=== PATIENT | female | born 2000 | race Caucasian/White ===

== ENCOUNTER 2019-01-19 06:43 | Emergency (ER) | payer OTHER ==
[2019-01-19] MEDS ORDERED: METOCLOPRAMIDE HCL 10 MG TABLET PO ONE (07:02)
--- NOTE | 2019-01-19 07:05 | ER Document Report ---
ED General - General Chief Complaint: Abdominal Cramping Stated Complaint: ABDOMINAL CRAMPING Time Seen by Provider: 01/19/19 06:55 Primary Care Provider: [facility] [Provider Group] - Follow up in 3-5 days Notes: Patient is a 18-year-old female, , that is approximately 7 weeks gravid that presents to the emergency department for chief complaint of abdominal cramping, nausea, vomiting and diarrhea. Patient reports that since Tuesday she has had at least one episode of vomiting each day, had a small amount of diarrhea as well. She is been having some lower abdominal cramping associated with this. She has not taken anything at home to help with her symptoms. She denies any fevers, chills, night sweats, chest pain, shortness of breath or difficulty breathing, dysuria, hematuria, frequency, vaginal bleeding or discharge. Past Medical History: Denies medical conditions Past Surgical History: Denies surgical history Social History: Denies tobacco, alcohol or drug use. Family History: Reviewed and noncontributory for presenting illness Allergies: Reviewed, see documented allergy list. REVIEW OF SYSTEMS: Other than noted above, the 12 point review of systems was reviewed with the pat ient and were negative, all pertinent findings are included in the HPI. PHYSICAL EXAMINATION: Vital signs reviewed, nursing noted reviewed. GENERAL: Well-appearing, well-nourished and in no acute distress. HEAD: Atraumatic, normocephalic. EYES: Eyes appear normal, extraocular movements intact, sclera anicteric, conjunctiva are normal. ENT: nares patent, oropharynx clear without exudates. Moist mucous membranes. NECK: Normal range of motion, supple without lymphadenopathy LUNGS: Breath sounds clear to auscultation bilaterally and equal. No wheezes rales or rhonchi. HEART: Regular rate and rhythm without murmurs ABDOMEN: Soft, nontender, normoactive bowel sounds. No rebound, guarding, or rigidity. No masses appreciated. EXTREMITIES: Nontender, good range of motion, no pitting or edema. NEUROLOGICAL: No focal neurological deficits. Moves all extremities spontaneously Motor and sensory grossly intact on exam. PSYCH: Normal mood, normal affect. SKIN: Warm, Dry, normal turgor, no rashes or lesions noted on exposed skin TRAVEL OUTSIDE OF THE [place] IN LAST 30 DAYS: No - Related Data Allergies/Adverse Reactions: No Known Allergies Allergy (Unverified 01/19/19 06:45) Past Medical History - Social History Smoking Status: Never Smoker Family History: Reviewed & Not Pertinent Physical Exam - Vital signs Vitals: Temp Pulse Resp BP Pulse Ox 98.0 F 80 16 127/60 H 99 01/19/19 06:49 01/19/19 06:49 01/19/19 06:49 01/19/19 06:49 01/19/19 06:49 Course - Re-evaluation Re-evalutation: Patient seen and examined vital signs reviewed. Laboratory data ordered as appropriate for the patient's presenting symptoms and complaint, with consideration of any critical or life threatening conditions that may be associated with their obtained history and exam as noted above. Patient was treated with p.o. Reglan Results were reviewed when available and demonstrated moderate leukocyte esterase, and white cells, will send for culture, and treat her UTI with Keflex for 5 days The patient was re-evaluated and was stable, no active vomiting Evaluation was most consistent with nausea and vomiting, abdominal cramping and , recommend [id number] Unisom and vitamin B6, and given a short prescription for Reglan as needed, patient made aware of possible side effects including extrapyramidal symptoms. Results were discussed with the patient at this point, after careful consideration I feel that that patient can be discharged from the emergency department, the patient was educated treatments and reasons to return to the emergency department based on their presumed diagnosis as noted above, they were advised to followup with a primary care physician in 2-3 days. Patient was agreeable to plan of care. *Note is created using voice recognition software and may contain spelling, syntax or grammatical errors. Laboratory 01/19/19 07:35 Urine Color YELLOW Urine Appearance CLOUDY Urine pH 5.0 Ur Specific [place] 1.031 Urine Protein 30 H Urine Glucose (UA) NEGATIVE Urine Ketones NEGATIVE Urine Blood NEGATIVE Urine Nitrite NEGATIVE Urine Bilirubin NEGATIVE Urine Urobilinogen 2.0 H Ur Leukocyte Esterase MODERATE H Urine WBC (Auto) 23 Urine RBC (Auto) 5 Squamous Epi Cells Auto 32 Urine Mucus (Auto) MANY Urine Ascorbic Acid NEGATIVE - Vital Signs Vital signs: Temp Pulse Resp BP Pulse Ox 98.0 F 80 16 127/60 H 99 01/19/19 06:49 01/19/19 06:49 01/19/19 06:49 01/19/19 06:49 01/19/19 06:49 - Laboratory Laboratory results interpreted by me: 01/19/19 07:35 Urine Protein 30 H Urine Urobilinogen 2.0 H Ur Leukocyte Esterase MODERATE H Discharge - Discharge Clinical Impression: Vomiting affecting UTI (urinary tract infection) Qualifiers: Urinary tract infection type: site unspecified Hematuria presence: without hematuria Qualified Code(s): N39.0 - Urinary tract infection, site not specified Condition: Stable Disposition: HOME, SELF-CARE Instructions: Urinary Tract Infection ([facility]), Vomiting ([facility]) Additional Instructions: Your urine did not look concerning for a urinary tract infection, please take antibiotics, as prescribed for 5 days, and for the nausea and vomiting at home, he can take the prescribed Reglan, but I would encourage you to start taking Unisom, plus a vitamin B6 tablets, twice daily to help with nausea and vomiting, the Unisom can cause drowsiness, so do not drive or operate the vehicle, if you are taking this medication. Prescriptions: Cephalexin Monohydrate [Keflex 500 mg Capsule] 500 mg PO BID 5 Days #10 capsule Metoclopramide HCl [Reglan 10 mg Tablet] 10 mg PO Q8H PRN #10 tablet PRN Reason: nausea and vomiting Referrals: [facility] [Provider Group] - Follow up in 3-5 days
[2019-01-19 07:56] LABS: APPEARANCE,URINE CLOUDY; BILIRUBIN,URINE NEGATIVE (NEGATIVE); GLUCOSE, URINE NEGATIVE (NEGATIVE); KETONES,URINE NEGATIVE (NEGATIVE); LEUKOCYTE ESTERASE,URINE MODERATE (NEGATIVE); NITRITE,URINE NEGATIVE (NEGATIVE); PROTEIN,URINE 30 mg/dL (NEGATIVE); URINE SPECIFIC GRAVITY 1.031
[2019-01-19 07:57] LABS: COLOR,URINE YELLOW
[2019-01-19 08:30] VITALS: BP 122/65
--- NOTE | 2019-01-23 17:21 | ER Document Report ---
Doctor's Note Notes: 01/23/19 17:20 Culture grew back Gardnerella vaginalis. Patient is 7 weeks first trimester. Recommendations state that it is appropriate to treat BV with Flagyl and as per CDC recommendations. I have written the patient a prescription for Flagyl 500 mg 2 times per day for 7 days.
== END 2019-01-19 08:29 | disposition home or self-care (01) ==
LOC: ER 06:43
DX: O21.9 Vomiting of pregnancy, unspecified (principal); O23.41 Unspecified infection of urinary tract in pregnancy, first trimester; O26.891 Other specified pregnancy related conditions, first trimester; R10.9 Unspecified abdominal pain; R19.7 Diarrhea, unspecified; Z3A.01 Less than 8 weeks gestation of pregnancy
CPT/HCPCS: 81001; 87086; 87088; 99284

== ENCOUNTER 2019-02-17 22:30 | Emergency (ER) | payer OTHER ==
[2019-02-17 23:36] LABS: ABSOLUTE EOSINOPHILS # (AUTO) 0.1 10^3/uL (0.0-0.6); ABSOLUTE LYMPHOCYTES (AUTO) 1.3 10^3/uL (0.5-4.7); ABSOLUTE NEUT (AUTO) 6.1 10^3/uL (1.7-8.2); BASOPHILS % (AUTO) 0.4 % (0-2); EOSINOPHILS % (AUTO) 1.4 % (0-6); HEMATOCRIT 32.8 % (36.0-47.0); HEMOGLOBIN 11.4 g/dL (12.0-15.5); LYMPHOCYTES % (AUTO) 15.2 % (13-45); MEAN CORPUSCULAR HEMOGLOBIN 28.3 pg (27.0-33.4); MEAN CORPUSCULAR HGB CONC 34.8 g/dL (32.0-36.0); MEAN CORPUSCULAR VOLUME 81 fl (80-97); MONOCYTES % (AUTO) 11.6 % (3-13); PLATELET COUNT 223 10^3/uL (150-450); RED BLOOD COUNT 4.04 10^6/uL (3.72-5.28); RED CELL DISTRIBUTION WIDTH 17.1 % (11.5-14.0); SEGMENTED NEUTROPHILS % (AUTO) 71.4 % (42-78); TOTAL CELLS COUNTED % (AUTO) 100 %; WHITE BLOOD COUNT 8.6 10^3/uL (4.0-10.5)
[2019-02-17 23:56] LABS: ALANINE AMINOTRANSFERASE 61 U/L (5-35); ALBUMIN 4.2 g/dL (3.7-5.6); ALKALINE PHOSPHATASE 65 U/L (50-135); ANION GAP 10 (5-19); ASPARTATE AMINO TRANSFERASE 53 U/L (5-30); BILIRUBIN,DIRECT 0.3 mg/dL (0.0-0.4); BILIRUBIN,TOTAL 0.3 mg/dL (0.2-1.3); BLOOD UREA NITROGEN 3 mg/dL (7-20); CALCIUM 9.2 mg/dL (8.4-10.2); CARBON DIOXIDE 23 mmol/L (22-30); CHLORIDE 105 mmol/L (98-107); GLUCOSE 88 mg/dL (75-110); POTASSIUM 4.5 mmol/L (3.6-5.0); SODIUM 138.2 mmol/L (137-145); TOTAL PROTEIN 7.7 g/dL (6.3-8.2)
[2019-02-18 02:25] LABS: APPEARANCE,URINE SLIGHTLY-CLOUDY; BILIRUBIN,URINE NEGATIVE (NEGATIVE); GLUCOSE, URINE NEGATIVE (NEGATIVE); KETONES,URINE 20 mg/dL (NEGATIVE); LEUKOCYTE ESTERASE,URINE NEGATIVE (NEGATIVE); NITRITE,URINE NEGATIVE (NEGATIVE); PROTEIN,URINE 30 mg/dL (NEGATIVE); URINE SPECIFIC GRAVITY 1.028
[2019-02-18 02:31] LABS: COLOR,URINE YELLOW
[2019-02-18] MEDS ORDERED: NORMAL SALINE 1000 ML 1,000 ML IV ONE (03:05)
[2019-02-18] MEDS ORDERED: METOCLOPRAMIDE HCL INJ/PF 10 MG/2 ML SDV IV ONE (03:05)
--- NOTE | 2019-02-18 04:23 | ER Document Report ---
ED General - General Chief Complaint: Nausea/Vomiting Stated Complaint: VOMITING Time Seen by Provider: 02/18/19 03:02 Notes: Patient is a 18-year-old female at 10 weeks gestation who presents with approximate 1 week of nausea and vomiting. She states that she became concerned tonight because there was a few small flecks of blood in the vomitus. Notes that eating or drinking seems to worsen her nausea and vomiting. Has been taking metoclopramide without relief. Has had some nausea and vomiting throughout her . Has not seen her OB regarding today's concerns. I think is necessarily otherwise new or different regarding her symptoms tonight. She denies any focal abdominal pain. Symptoms are described as moderate to severe. Gradual in onset and have been constant since that time. Denies any chronic medical problems or history of abdominal surgeries. TRAVEL OUTSIDE OF THE [place] IN LAST 30 DAYS: No - Related Data Allergies/Adverse Reactions: No Known Allergies Allergy (Verified 02/17/19 22:41) Past Medical History - General Information source: Patient - Social History Smoking Status: Never Smoker Frequency of alcohol use: None Drug Abuse: None Lives with: Spouse/Significant other Family History: Reviewed & Not Pertinent Renal/ Medical History: Denies: Hx Peritoneal Dialysis Review of Systems - Review of Systems Notes: Constitutional: Negative for fever. HENT: Negative for sore throat. Eyes: Negative for visual changes. Cardiovascular: Negative for chest pain. Respiratory: Negative for shortness of breath. Gastrointestinal: Negative for abdominal pain, positive nausea vomiting Genitourinary: Negative for dysuria. Musculoskeletal: Negative for back pain. Skin: Negative for rash. Neurological: Negative for headaches, weakness or numbness. 10 point ROS negative except as marked above and in HPI. Physical Exam - Vital signs Vitals: Temp Pulse Resp BP Pulse Ox 98 F 79 18 116/68 99 02/17/19 22:42 02/17/19 22:42 02/17/19 22:42 02/17/19 22:42 02/17/19 22:42 Interpretation: Normal Notes: PHYSICAL EXAMINATION: GENERAL: Well-appearing, well-nourished and in no acute distress. HEAD: Atraumatic, normocephalic. EYES: Pupils equal round and reactive to light, extraocular movements intact, sclera anicteric, conjunctiva are normal. ENT: nares patent, oropharynx clear without exudates. Mild dry mucous membranes. NECK: Normal range of motion, supple without lymphadenopathy LUNGS: Breath sounds clear to auscultation bilaterally and equal. No wheezes rales or rhonchi. HEART: Regular rate and rhythm without murmurs ABDOMEN: Soft, gravid uterus, nontender, normoactive bowel sounds. No guarding, no rebound. No masses appreciated. EXTREMITIES: Normal range of motion, no pitting or edema. No cyanosis. NEUROLOGICAL: No focal neurological deficits. Moves all extremities spontaneously and on command. PSYCH: Normal mood, normal affect. SKIN: Warm, Dry, normal turgor, no rashes or lesions noted. Course - Re-evaluation Re-evalutation: 02/18/19 04:21 Patient presents with persistent vomiting during . Vitals at time of arrival unremarkable without tachycardia or hypotension. Laboratories reveal a normal creatinine and no evidence of significant dehydration. Patient was able to tolerate oral intake here in the emergency department. IV fluids were provided. Bedside ultrasound shows appropriate heart rate for gestational age with active movement. No vaginal bleeding or discharge. Based on abdominal exam, vitals and history I do not suspect an acute appendicitis, terrell stasis of , acute cholecystitis, pancreatitis, or bowel obstruction. Patient will be started on a combination of doxylamine and vitamin B6. At this time will discharge with return precautions and follow-up recommendations. Verbal discharge instructions given a the bedside and opportunity for questions given. Medication warnings reviewed. Patient is in agreement with this plan and has verbalized understanding of return precautions and the need for primary care follow-up in the next 24-72 hours. - Vital Signs Vital signs: Temp Pulse Resp BP Pulse Ox 98 F 79 18 116/68 99 02/17/19 22:42 02/17/19 22:42 02/17/19 22:42 02/17/19 22:42 02/17/19 22:42 - Laboratory Result Diagrams: 02/17/19 23:20 02/17/19 23:20 Laboratory results interpreted by me: 02/17/19 02/17/19 02/18/19 23:20 23:20 01:55 Hgb 11.4 L Hct 32.8 L RDW 17.1 H BUN 3 L Creatinine 0.43 L AST 53 H ALT 61 H Urine Protein 30 H Urine Ketones 20 H Urine Urobilinogen 4.0 H Urine Ascorbic Acid 40 H Discharge - Discharge Clinical Impression: Nausea and vomiting during Condition: Good Disposition: HOME, SELF-CARE Additional Instructions: You have been seen for vomiting during . You should continue to drink plenty of water and consider taking a solution such as Pedialyte if your having difficulty eating food. Please return if you become unable to drink any fluids for more than 12 hours, urinate less than twice a day, pass out, or have any other symptoms that are concerning to you. For nausea and vomiting during I recommend: Start with 10-12.5 mg of pyridoxine (vitamin B6) three times a day for 2 days. If not fully effective, Increase to 12.5 mg of pyridoxine four times a day for 2 days. If not fully effective, Increase to 25 mg of pyridoxine three times a day for 2 days. If not fully effective, Continue 25 mg pyridoxine 3 times a day, and add 12.5 mg of doxylamine before bedtime each day for 2 days. If not fully effective, Continue 25 mg pyridoxine 3 times a day, and take 12.5 mg of doxylamine twice a day. If not fully effective, Continue 25 mg pyridoxine 3 times a day, and take 12.5 mg of doxylamine three times a day.
[2019-02-18 05:02] VITALS: BP 100/48
== END 2019-02-18 05:10 | disposition home or self-care (01) ==
LOC: ER 22:30
DX: O21.9 Vomiting of pregnancy, unspecified (principal); Z3A.10 10 weeks gestation of pregnancy
CPT/HCPCS: 99284; 96374; 36415; 85025; 80053; 81001; J2765; J7030; 96361

== ENCOUNTER 2019-06-08 08:15 | Emergency (ER) | payer OTHER ==
[2019-06-08 08:26] VITALS: BP 149/90
[2019-06-08] MEDS ORDERED: ACETAMINOPHEN 325 MG TABLET PO ONE (09:40)
--- NOTE | 2019-06-08 09:44 | ER Document Report ---
HPI - HPI Time Seen by Provider: 06/08/19 09:31 Pain Level: 2 Notes: Patient is a 18-year-old female who is approximately 24 weeks who presents complaining of a mild lingering headache for the past 3 to 4 days. She has not been taking any medicines at home for her headache. Patient states her headache is to her temples bilaterally and does not radiate. She is able to eat and drink without difficulties. She is urinating normally and having normal bowel movements. She has not noticed any vaginal odor, discharge, or bleeding. Patient states that she did change the cat litter once on Tuesday and was told that she probably should not be doing that. Patient is not sure if that has anything to do with her headache. She is otherwise been feeling well. Denies any headache, fever, head injury, neck pain, changes in vision/speech/mentation/hearing, URI, sore throat, chest pain, palpitations, syncope, cough, shortness of breath, wheeze, dyspnea, abdominal pain, nausea/vomiting/diarrhea, urinary retention, dysuria, hematuria, loss of control of bowel or bladder, numbness/tingling, muscle paralysis/weakness, or rash. - ROS Systems Reviewed and Negative: Yes All other systems reviewed and negative - REPRODUCTIVE Reproductive: REPORTS: : - DERM Skin Color: Normal Past Medical History - Social History Smoking Status: Never Smoker Frequency of alcohol use: None Drug Abuse: None Family History: Reviewed & Not Pertinent Patient has suicidal ideation: No Patient has homicidal ideation: No Renal/ Medical History: Denies: Hx Peritoneal Dialysis Vertical Provider Document - CONSTITUTIONAL Agree With Documented VS: Yes Notes: PHYSICAL EXAMINATION: GENERAL: Well-appearing, well-nourished and in no acute distress. A&Ox4. Answers questions appropriately. HEAD: Atraumatic, normocephalic. Non-tender. EYES: Pupils equal round and reactive to light, extraocular movements intact, sclera anicteric, conjunctiva are normal. No nystagmus. ENT: Nares patent and without discharge. oropharynx clear without exudates. No tonsilar hypertrophy or erythema. Moist mucous membranes. No sinus tenderness. NECK: Normal range of motion, supple without lymphadenopathy. No rigidity/meningismus. No midline tenderness. LUNGS: Breath sounds clear to auscultation bilaterally and equal. No wheezes rales or rhonchi. HEART: Regular rate and rhythm without murmurs, rubs, gallops. ABDOMEN: Soft, nontender, nondistended abdomen. No guarding, no rebound. Normal bowel sounds present. No CVA tenderness bilaterally. Musculoskeletal: Ext b/l: FROM to passive/active. Strength 5+/5. No deficits noted. No bony tenderness of extremities. Extremities: No cyanosis, clubbing, or edema b/l. Peripheral pulses 2+. Capillary refill less than 2 seconds. NEUROLOGICAL: NIH 0. GCS 15. Cranial nerves grossly intact. Normal speech, normal gait. Normal sensory, motor exams. Reflexes 2+ b/l. CRHISTEN's negative. Pronator drift negative. PSYCH: Normal mood, normal affect. SKIN: Warm, Dry, normal turgor, no rashes or lesions noted. - INFECTION CONTROL TRAVEL OUTSIDE OF THE [place] IN LAST 30 DAYS: No Course - Re-evaluation Re-evalutation: 06/08/19 09:41 Patient is an afebrile, well-hydrated, 18-year-old female who presents to the ED with a headache, suspect mild tension PHAM. Vitals are acceptable without any significant tachycardia, tachypnea, or hypoxia. PE is otherwise unremarkable for any focal neurological deficits. NIH 0, GCS 15, cranial nerves grossly intact. No labs or imaging warranted at this time based on H&P. Patient was given Tylenol. She is nontoxic-appearing and is tolerating p.o. without any difficulties. Low suspicion for any acute glaucoma, temporal arteritis, meningi tis, intracranial hemorrhage, ischemic stroke, or fracture at this time. Patient is aware that this condition can change from initial presentation and that she needs to monitor symptoms closely for any acute changes. Patient to call and speak with her IMMIGRATION CASE MANAGER about and toxoplasmosis. Patient in agreement to hold off on any testing right now based on her current H&P. Return to the ED with any worsening/concerning symptoms otherwise as reviewed in discharge. Patient is in agreement. - Vital Signs Vital signs: Temp Pulse Resp BP Pulse Ox 97.5 F 73 18 149/90 H 98 06/08/19 08:20 06/08/19 08:20 06/08/19 08:20 06/08/19 08:20 06/08/19 08:20 Discharge - Discharge Clinical Impression: Headache Qualifiers: Headache type: tension-type Headache chronicity pattern: acute headache Intractability: not intractable Qualified Code(s): G44.209 - Tension-type headache, unspecified, not intractable Condition: Stable Disposition: HOME, SELF-CARE Instructions: Headache ([facility]) Additional Instructions: Rest, Ice/cool compress Tylenol as needed Light stretches daily Strength exercises as able Moist heat and massage may help F/u with your PCP in 2-3 days for a recheck Call and speak with IMMIGRATION CASE MANAGER regarding toxoplasmosis and Return to the ED with any worsening symptoms and/or development of fever, headache, changes in behavior/mentation/vision/speech, chest pain, palpitations, syncope, shortness of breath, trouble breathing, abdominal pain, n/v/d, blood in stool/urine, loss of control of bowel/bladder, urinary retention, muscle weakness/paralysis, saddle anesthesia, numbness/tingling, or other worsening symptoms that are concerning to you. Forms: Elevated Blood Pressure Referrals: [facility] [Provider Group] - Follow up as needed
== END 2019-06-08 09:49 | disposition home or self-care (01) ==
LOC: ER 08:15
DX: O99.350 Diseases of the nervous system complicating pregnancy, unspecified trimester (principal); G44.209 Tension-type headache, unspecified, not intractable; Z3A.00 Weeks of gestation of pregnancy not specified
CPT/HCPCS: 99283

== ENCOUNTER 2019-08-27 11:45 | Inpatient (IN) | payer OTHER ==
[2019-08-27 12:56] LABS: APPEARANCE,URINE CLOUDY; BILIRUBIN,URINE NEGATIVE (NEGATIVE); COLOR,URINE AMBER; GLUCOSE, URINE NEGATIVE (NEGATIVE); KETONES,URINE NEGATIVE (NEGATIVE); LEUKOCYTE ESTERASE,URINE NEGATIVE (NEGATIVE); NITRITE,URINE NEGATIVE (NEGATIVE); PROTEIN,URINE >=500 mg/dL (NEGATIVE); URINE SPECIFIC GRAVITY 1.031
[2019-08-27 13:34] LABS: URINE AMPHETAMINES SCREEN NEGATIVE; URINE BARBITURATES SCREEN NEGATIVE; URINE BENZODIAZEPINES SCREEN NEGATIVE; URINE COCAINE SCREEN NEGATIVE; URINE MARIJUANA (THC) SCREEN NEGATIVE; URINE METHADONE SCREEN NEGATIVE; URINE PHENCYCLIDINE SCREEN NEGATIVE
[2019-08-27 13:39] LABS: URINE CREATININE 262.6 mg/dL (16-327)
[2019-08-27 13:55] LABS: HEMATOCRIT 27.2 % (36.0-47.0); HEMOGLOBIN 8.7 g/dL (12.0-15.5); MEAN CORPUSCULAR HEMOGLOBIN 22.4 pg (27.0-33.4); MEAN CORPUSCULAR VOLUME 70 fl (80-97); PLATELET COUNT 156 10^3/uL (150-450); RED BLOOD COUNT 3.89 10^6/uL (3.72-5.28); RED CELL DISTRIBUTION WIDTH 17.6 % (11.5-14.0); WHITE BLOOD COUNT 7.8 10^3/uL (4.0-10.5)
[2019-08-27 14:42] LABS: UR PRO/CREAT RATIO RESULT 1.3 mg/mg (0.0-0.2); URINE PROTEIN 350.8 mg/dL (<12)
[2019-08-27 14:45] LABS: ALBUMIN 3.2 g/dL (3.5-5.0); ALKALINE PHOSPHATASE 151 U/L (38-126); ANION GAP 9 (5-19); ASPARTATE AMINO TRANSFERASE 25 U/L (14-36); BILIRUBIN,DIRECT 0.2 mg/dL (0.0-0.4); BILIRUBIN,TOTAL 0.3 mg/dL (0.2-1.3); BLOOD UREA NITROGEN 7 mg/dL (7-20); CALCIUM 9.2 mg/dL (8.4-10.2); CARBON DIOXIDE 19 mmol/L (22-30); CHLORIDE 107 mmol/L (98-107); TOTAL PROTEIN 6.5 g/dL (6.3-8.2); URIC ACID 5.9 mg/dL (2.5-6.2)
[2019-08-27 14:51] LABS: GLUCOSE 67 mg/dL (75-110)
--- NOTE | 2019-08-27 15:32 | Admission Physical ---
Datetime Report Generated by CPN: 08/27/2019 15:32 CURRENT ADMISSION Chief Complaint: Sent from OB Office for Evaluation and Treatment - Please Specify Chief Complaint Other: sent for Pre E workup first elevated BP at [facility] today of 148/91 and 3+ protein on dipstick Asymptomatic and benign course thus far Indication for Induction: Not Applicable ALLERGIES Medication Allergies: No Medication Allergies: No Known Allergies (06/08/2019) Latex: No Latex Allergies OBSTETRICAL HISTORY EDC: 09/13/2009 00:00 : 1 Para: 0 Gestational Diabetes: No Rh Sensitization: No Incompetent Cervix: No ODILIA: No Infertility: No ART Treatment: No Uterine Anomaly: No IUGR: No Hx Previous C/S: No Macrosomia: No Hx Loss/Stillborn: No PIH: Yes Hx : No Placenta Previa/Abruption: No Depression/PP Depression: No PTL/PROM: No Post Hemorrhage: No Current Procedures: Ultrasound Obstetrical History Comments: G-1-PRE-E SEE RECORDS Alcohol: No Marijuana : No Cocaine: No Other Illicit Drugs: No Cigarettes: Never Smoker. 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 Surgery: No Heart Disease: No Hosp/Surgery: No Autoimmune Disorder: No Anesthetic Complications: No Kidney Disease: No Abnormal Pap Smear: No Neuro/Epilepsy: No Psychiatric Disorders: No Other Medical Diseases: No Hepatitis/Liver Disease: No Varicosities/Phlebitis: No Thyroid Dysfunction: No Medical History Comments: PRE-E PHYSICAL EXAM General: Normal HEENT: Deferred Neurologic: Normal Thyroid: Deferred Heart: Normal Lungs: Normal Breast: Deferred Back: Deferred Abdomen: Normal Genitourinary Exam: Normal Extremities: Normal DTRs: Normal Pelvic Type: Adequate Vital Signs: Reviewed VAGINAL EXAM Dilatation: 0 Effacement: 0 Station: -3 FETUS A EGA: 559.2 Monitoring: External US FHR- Baseline: 120 Variability: Moderate 6-25bpm Accelerations: 15X15 FHR Category: Category I Presentation: Vertex Admit Comment: one elevated SBP here today of 151/80, all others normal Labs are normal and she is asymptomatic, denies PHAM, Vis changes, abd pain GBS neg PLANS FOR LABOR AND DELIVERY Labor and Delivery: None Pain Management: Epidural Feeding Preference: Breast Benefit of Breast Feed Discussed: Yes INFORMED CONSENT Assignment: Jessica Palma MD Signature: with User ID: [email or web address] : with User ID: [email or web address]
--- NOTE | 2019-08-27 15:36 | Admission Physical ---
Datetime Report Generated by CPN: 08/27/2019 15:35 CURRENT ADMISSION Hx Assessment: The History has been Reviewed and is Current Chief Complaint: Sent from OB Office for Evaluation and Treatment - Please Specify Chief Complaint Other: sent for Pre E workup first elevated BP at [facility] today of 148/91 and 3+ protein on dipstick Asymptomatic and benign course thus far Indication for Induction: Not Applicable Admit Impression : No Active Labor Admit Plan: Observation/Evaluation ALLERGIES Medication Allergies: No Medication Allergies: No Known Allergies (06/08/2019) Latex: No Latex Allergies OBSTETRICAL HISTORY EDC: 09/13/2009 00:00 : 1 Para: 0 Gestational Diabetes: No Rh Sensitization: No Incompetent Cervix: No ODILIA: No Infertility: No ART Treatment: No Uterine Anomaly: No IUGR: No Hx Previous C/S: No Macrosomia: No Hx Loss/Stillborn: No PIH: Yes Hx : No Placenta Previa/Abruption: No Depression/PP Depression: No PTL/PROM: No Post Hemorrhage: No Current Procedures: Ultrasound Obstetrical History Comments: G-1-PRE-E SEE RECORDS Alcohol: No Marijuana : No Cocaine: No Other Illicit Drugs: No Cigarettes: Never Smoker. 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 Surgery: No Heart Disease: No Hosp/Surgery: No Autoimmune Disorder: No Anesthetic Complications: No Kidney Disease: No Abnormal Pap Smear: No Neuro/Epilepsy: No Psychiatric Disorders: No Other Medical Diseases: No Hepatitis/Liver Disease: No Varicosities/Phlebitis: No Thyroid Dysfunction: No Medical History Comments: PRE-E PHYSICAL EXAM General: Normal HEENT: Deferred Neurologic: Normal Thyroid: Deferred Heart: Normal Lungs: Normal Breast: Deferred Back: Deferred Abdomen: Normal Genitourinary Exam: Normal Extremities: Normal DTRs: Normal Pelvic Type: Adequate Vital Signs: Reviewed VAGINAL EXAM Dilatation: 0 Effacement: 0 Station: -3 MEMBRANES Membranes: Intact FETUS A EGA: 559.2 Monitoring: External US FHR- Baseline: 120 Variability: Moderate 6-25bpm Accelerations: 15X15 FHR Category: Category I Presentation: Vertex Admit Comment: one elevated SBP here today of 151/80, all others normal Labs are normal and she is asymptomatic, denies PHAM, Vis changes, abd pain GBS neg Discussed POC with Dr. Palma, to have pt do 24* urine inpatient on [address] [place] PLANS FOR LABOR AND DELIVERY Labor and Delivery: None Pain Management: Epidural Feeding Preference: Breast Benefit of Breast Feed Discussed: Yes INFORMED CONSENT Assignment: Jessica Palma MD Signature: with User ID: [email or web address] : with User ID: [email or web address]
[2019-08-28 08:03] LABS: ABSOLUTE EOSINOPHILS # (AUTO) 0.1 10^3/uL (0.0-0.6); ABSOLUTE LYMPHOCYTES (AUTO) 1.5 10^3/uL (0.5-4.7); ABSOLUTE MONOCYTES (AUTO) 1.1 10^3/uL (0.1-1.4); BASOPHILS % (AUTO) 0.6 % (0-2); EOSINOPHILS % (AUTO) 1.7 % (0-6); HEMATOCRIT 26.4 % (36.0-47.0); HEMOGLOBIN 8.6 g/dL (12.0-15.5); LYMPHOCYTES % (AUTO) 18.8 % (13-45); MEAN CORPUSCULAR HEMOGLOBIN 22.8 pg (27.0-33.4); MEAN CORPUSCULAR HGB CONC 32.7 g/dL (32.0-36.0); MEAN CORPUSCULAR VOLUME 70 fl (80-97); MONOCYTES % (AUTO) 13.9 % (3-13); PLATELET COUNT 162 10^3/uL (150-450); RED BLOOD COUNT 3.79 10^6/uL (3.72-5.28); RED CELL DISTRIBUTION WIDTH 17.6 % (11.5-14.0); TOTAL CELLS COUNTED % (AUTO) 100 %; WHITE BLOOD COUNT 7.7 10^3/uL (4.0-10.5)
[2019-08-28 08:21] LABS: ALBUMIN 2.9 g/dL (3.5-5.0); ALKALINE PHOSPHATASE 144 U/L (38-126); ANION GAP 9 (5-19); ASPARTATE AMINO TRANSFERASE 19 U/L (14-36); BILIRUBIN,TOTAL 0.2 mg/dL (0.2-1.3); BLOOD UREA NITROGEN 7 mg/dL (7-20); CALCIUM 8.3 mg/dL (8.4-10.2); CARBON DIOXIDE 18 mmol/L (22-30); CHLORIDE 108 mmol/L (98-107); GLUCOSE 72 mg/dL (75-110); POTASSIUM 4.2 mmol/L (3.6-5.0); TOTAL PROTEIN 6.2 g/dL (6.3-8.2)
[2019-08-28] MEDS ORDERED: INFLUENZA QUAD (6MOS+) 2019-20 VAC 0.5 ML SYR IM ONE (09:30)
--- NOTE | 2019-08-28 11:13 | PDOC PROGRESS REPORT ---
Subjective Progress Note for:: 08/28/19 Subjective:: Doing well today. No complaints. Good FM. No PHAM, CP, SOB, RUQ pain, n/v or vision changes Reason For Visit: TERM IUP WITH PROTEINURIA,R/O PRE ECLAMPSIA Physical Exam - Physical Exam Vital Signs: Temp Pulse Resp BP Pulse Ox 98.2 F 77 16 136/81 H 100 08/28/19 08:06 08/28/19 08:06 08/28/19 08:06 08/28/19 08:06 08/28/19 08:06 Intake & Output 08/27/19 08/28/19 08/29/19 06:59 06:59 06:59 Output Total 400 Balance -400 Weight 78.2 kg General appearance: PRESENT: no acute distress, well-developed, well-nourished Cardiovascular exam: PRESENT: RRR, +S1, +S2 GI/Abdominal exam: PRESENT: normal bowel sounds, soft Neurological exam: PRESENT: alert, oriented to person, oriented to place, oriented to time, reflexes normal Psychiatric exam: PRESENT: appropriate affect Skin exam: PRESENT: dry - No organomegally or pain in abdomen on palpation, normal color, warm Result Laboratory Results: 08/28/19 07:29 08/28/19 07:29 08/27/19 08/27/19 08/27/19 11:45 13:07 13:07 WBC 7.8 RBC 3.89 Hgb 8.7 L Hct 27.2 L MCV 70 L MCH 22.4 L MCHC 32.0 RDW 17.6 H Plt Count 156 Seg Neutrophils % Sodium 134.5 L Potassium 5.0 Chloride 107 Carbon Dioxide 19 L Anion Gap 9 BUN 7 Creatinine 0.46 L Est GFR ( Amer) > 60 Glucose 67 L Uric Acid 5.9 Calcium 9.2 Total Bilirubin 0.3 AST 25 Alkaline Phosphatase 151 H Total Protein 6.5 Albumin 3.2 L Urine Color NUNU Urine Appearance CLOUDY Urine pH 6.0 Ur Specific [place] 1.031 Urine Protein >=500 H Urine Glucose (UA) NEGATIVE Urine Ketones NEGATIVE Urine Blood NEGATIVE Urine Nitrite NEGATIVE Ur Leukocyte Esterase NEGATIVE 08/28/19 08/28/19 07:29 07:29 WBC 7.7 RBC 3.79 Hgb 8.6 L Hct 26.4 L MCV 70 L MCH 22.8 L MCHC 32.7 RDW 17.6 H Plt Count 162 Seg Neutrophils % 65.0 Sodium 134.9 L Potassium 4.2 Chloride 108 H Carbon Dioxide 18 L Anion Gap 9 BUN 7 Creatinine 0.44 L Est GFR ( Amer) > 60 Glucose 72 L Uric Acid Calcium 8.3 L Total Bilirubin 0.2 AST 19 Alkaline Phosphatase 144 H Total Protein 6.2 L Albumin 2.9 L Urine Color Urine Appearance Urine pH Ur Specific [place] Urine Protein Urine Glucose (UA) Urine Ketones Urine Blood Urine Nitrite Ur Leukocyte Esterase Assessment & Plan - Time Time Spent with patient: Less than 15 minutes - PIH precautions, plan of care discussed with her family and her - Plan Summary Plan Summary: 19 yo G1 at 37.0 wks EGA with gHTN in -rule out preE. She had elevated b/p at office of 150 /90 yesterday--> admitted for serial b/p and 24 hr urine. -VSS normotensive -Asymptomatic. Good FM. No PIH sx -Continue 24 hr urine-will complete collection 1500 -NST BID -Continue current care.
[2019-08-28 16:00] LABS: URINE CREATININE 109.7 mg/dL (16-327)
[2019-08-28 17:08] LABS: 24 HOUR URINE PROTEIN RESULT 5431 mg/day (42-225); URINE PROTEIN 522.2 mg/dL (<12)
[2019-08-28] MEDS: FERROUS SULFATE 325 MG TABLET PO SCH (20:31)
[2019-08-29] MEDS: FERROUS SULFATE 325 MG TABLET PO SCH (09:59)
[2019-08-29] MEDS ORDERED: DINOPROSTONE 10 MG VAGINAL INSERT.SR PV PRN (11:36)
[2019-08-29] MEDS ORDERED: RINGERS SOLUTION,LACTATED 300 ML IV ONE (11:36)
[2019-08-29] MEDS: RINGERS SOLUTION,LACTATED 1,000 ML IV PRN (12:15)
[2019-08-29] MEDS ORDERED: OXYTOCIN 10 UNIT/ML VIAL ONE (12:25)
[2019-08-29] MEDS ORDERED: LIDOCAINE 1% INJ-PF (10 MG/ML) 30 ML SDV ONE (12:26)
[2019-08-29] MEDS ORDERED: DINOPROSTONE 10 MG VAGINAL INSERT.SR ONE (12:26)
[2019-08-29] MEDS ORDERED: OXYTOCIN/NORMAL SALINE 20 UNIT/1,000 ML RTUINJ ONE (12:26)
[2019-08-29] MEDS ORDERED: MISOPROSTOL 0.2 MG TABLET ONE (12:26)
[2019-08-29] MEDS ORDERED: ONDANSETRON HCL INJ/PF 4 MG/2 ML SDV ONE (12:27)
[2019-08-29 12:46] LABS: HEMATOCRIT 28.9 % (36.0-47.0); HEMOGLOBIN 9.3 g/dL (12.0-15.5); MEAN CORPUSCULAR HEMOGLOBIN 22.6 pg (27.0-33.4); MEAN CORPUSCULAR HGB CONC 32.3 g/dL (32.0-36.0); MEAN CORPUSCULAR VOLUME 70 fl (80-97); PLATELET COUNT 216 10^3/uL (150-450); RED BLOOD COUNT 4.13 10^6/uL (3.72-5.28); WHITE BLOOD COUNT 9.9 10^3/uL (4.0-10.5)
[2019-08-29 13:06] LABS: ALBUMIN 3.2 g/dL (3.5-5.0); ALKALINE PHOSPHATASE 163 U/L (38-126); ANION GAP 8 (5-19); ASPARTATE AMINO TRANSFERASE 21 U/L (14-36); BILIRUBIN,DIRECT 0.1 mg/dL (0.0-0.4); BILIRUBIN,TOTAL 0.3 mg/dL (0.2-1.3); BLOOD UREA NITROGEN 9 mg/dL (7-20); CALCIUM 9.3 mg/dL (8.4-10.2); CARBON DIOXIDE 19 mmol/L (22-30); CHLORIDE 108 mmol/L (98-107); GLUCOSE 85 mg/dL (75-110); POTASSIUM 4.2 mmol/L (3.6-5.0); TOTAL PROTEIN 6.6 g/dL (6.3-8.2)
[2019-08-29] MEDS ORDERED: OXYCODONE-ACETAMINOPHEN 5-325 MG TABLET PO ONE (18:52)
[2019-08-29] MEDS ORDERED: OXYCODONE-ACETAMINOPHEN 5-325 MG TABLET ONE (18:54)
[2019-08-29] MEDS ORDERED: MISOPROSTOL 0.1 MG TABLET ONE (23:07)
[2019-08-29] MEDS ORDERED: MISOPROSTOL 0.1 MG TABLET PO ONE (23:30)
[2019-08-30] MEDS ORDERED: MISOPROSTOL 0.1 MG TABLET ONE (03:40)
[2019-08-30] MEDS: RINGERS SOLUTION,LACTATED 1,000 ML IV PRN ×2 (03:47→23:33)
[2019-08-30] MEDS ORDERED: MISOPROSTOL 0.1 MG TABLET PV ONE (04:30)
[2019-08-30] MEDS ORDERED: MISOPROSTOL 0.1 MG TABLET PO ONE (04:30)
[2019-08-30] MEDS ORDERED: TERBUTALINE SULFATE INJ/PF 1 MG/1 ML SDV ONE (04:47)
[2019-08-30] MEDS ORDERED: OXYCODONE-ACETAMINOPHEN 5-325 MG TABLET ONE (05:25)
[2019-08-30] MEDS ORDERED: TERBUTALINE SULFATE INJ/PF 1 MG/1 ML SDV SUBCUT ONE (05:30)
[2019-08-30] MEDS ORDERED: OXYCODONE-ACETAMINOPHEN 5-325 MG TABLET PO ONE (06:00)
[2019-08-30] MEDS ORDERED: NALBUPHINE HCL INJ 10 MG/1 ML AMPULE ONE (06:29)
[2019-08-30 07:40] LABS: ABSOLUTE BASOPHILS # (AUTO) 0.1 10^3/uL (0.0-0.2); ABSOLUTE LYMPHOCYTES (AUTO) 0.8 10^3/uL (0.5-4.7); ABSOLUTE MONOCYTES (AUTO) 1.1 10^3/uL (0.1-1.4); ABSOLUTE NEUT (AUTO) 11.6 10^3/uL (1.7-8.2); BASOPHILS % (AUTO) 0.5 % (0-2); EOSINOPHILS % (AUTO) 0.1 % (0-6); HEMATOCRIT 28.6 % (36.0-47.0); HEMOGLOBIN 9.1 g/dL (12.0-15.5); LYMPHOCYTES % (AUTO) 5.9 % (13-45); MEAN CORPUSCULAR HEMOGLOBIN 22.3 pg (27.0-33.4); MEAN CORPUSCULAR HGB CONC 31.8 g/dL (32.0-36.0); MEAN CORPUSCULAR VOLUME 70 fl (80-97); MONOCYTES % (AUTO) 8.3 % (3-13); PLATELET COUNT 187 10^3/uL (150-450); RED BLOOD COUNT 4.07 10^6/uL (3.72-5.28); RED CELL DISTRIBUTION WIDTH 17.7 % (11.5-14.0); SEGMENTED NEUTROPHILS % (AUTO) 85.2 % (42-78); TOTAL CELLS COUNTED % (AUTO) 100 %; WHITE BLOOD COUNT 13.6 10^3/uL (4.0-10.5)
[2019-08-30 08:29] LABS: ALKALINE PHOSPHATASE 162 U/L (38-126); ANION GAP 11 (5-19); ASPARTATE AMINO TRANSFERASE 24 U/L (14-36); BILIRUBIN,DIRECT 0.1 mg/dL (0.0-0.4); BILIRUBIN,TOTAL 0.3 mg/dL (0.2-1.3); BLOOD UREA NITROGEN 6 mg/dL (7-20); CALCIUM 8.9 mg/dL (8.4-10.2); CARBON DIOXIDE 18 mmol/L (22-30); CHLORIDE 108 mmol/L (98-107); GLUCOSE 90 mg/dL (75-110); POTASSIUM 3.8 mmol/L (3.6-5.0); TOTAL PROTEIN 6.3 g/dL (6.3-8.2); URIC ACID 6.2 mg/dL (2.5-6.2)
[2019-08-30] MEDS ORDERED: PHENYLEPHRINE HCL INJ/PF 10 MG/1 ML SDV ONE (11:03)
[2019-08-30] MEDS ORDERED: FENTANYL CITRATE INJ/PF 100 MCG/2 ML AMPUL ONE ×2 (11:04→16:54)
[2019-08-30] MEDS ORDERED: FENTANYL/BUPIVACAINE/NS/PF 300 MCG/150 ML RTUINJ EPI ONE (11:04)
[2019-08-30] MEDS ORDERED: EPHEDRINE SULFATE INJ 50 MG/1 ML AMPULE ONE (11:04)
[2019-08-30] MEDS ORDERED: BUPIVACAINE HCL 0.25 % INJ/PF (2.5 MG/1 ML) 30 ML VIAL ONE (11:05)
[2019-08-30] MEDS ORDERED: OXYTOCIN/NORMAL SALINE 20 UNIT/1,000 ML RTUINJ ONE ×2 (14:06→16:23)
[2019-08-30] MEDS ORDERED: LIDOCAINE 1% INJ-PF (10 MG/ML) 30 ML SDV ONE (14:06)
[2019-08-30] MEDS ORDERED: OXYTOCIN 10 UNIT/ML VIAL ONE ×3 (14:06→16:45)
[2019-08-30] MEDS ORDERED: MISOPROSTOL 0.2 MG TABLET ONE ×2 (14:06→16:45)
[2019-08-30] MEDS ORDERED: CEFAZOLIN INJ 1 GM VIAL ONE (16:12)
[2019-08-30] MEDS ORDERED: CITRIC ACID/SODIUM CITRATE ORAL SOLN 15 ML UDCUP ONE (16:12)
[2019-08-30] MEDS ORDERED: LIDOCAINE 2% INJ-PF (20 MG/ML) 10 ML AMPUL ONE ×2 (16:14→16:16)
[2019-08-30] MEDS ORDERED: LIDOCAINE 2%/EPINEPHRINE INJ 20 ML VIAL ONE (16:15)
[2019-08-30] MEDS ORDERED: SODIUM BICARBONATE 8.4% INJ 50 MEQ/50 ML DISP.SYRIN ONE (16:16)
[2019-08-30] MEDS ORDERED: ONDANSETRON HCL INJ/PF 4 MG/2 ML SDV ONE (16:23)
[2019-08-30] MEDS ORDERED: MORPHINE SULFATE 10 MG/ML INJ ONE (16:23)
[2019-08-30] MEDS ORDERED: MIDAZOLAM 2 MG/2 ML INJ ONE (16:23)
[2019-08-30 16:34] LABS: HEMOGLOBIN 9.2 g/dL (12.0-15.5); MEAN CORPUSCULAR HEMOGLOBIN 22.3 pg (27.0-33.4); MEAN CORPUSCULAR HGB CONC 31.6 g/dL (32.0-36.0); MEAN CORPUSCULAR VOLUME 71 fl (80-97); PLATELET COUNT 208 10^3/uL (150-450); WHITE BLOOD COUNT 16.4 10^3/uL (4.0-10.5)
[2019-08-30] MEDS ORDERED: METHYLERGONOVINE MALEATE INJ/PF 0.2 MG/1 ML AMPULE ONE (16:45)
[2019-08-30] MEDS ORDERED: CARBOPROST TROMETHAMINE INJ 250 MCG/1 ML AMPULE ONE (16:45)
[2019-08-30 16:54] LABS: ALBUMIN 3.2 g/dL (3.5-5.0); ALKALINE PHOSPHATASE 167 U/L (38-126); ANION GAP 9 (5-19); ASPARTATE AMINO TRANSFERASE 27 U/L (14-36); BILIRUBIN,DIRECT 0.2 mg/dL (0.0-0.4); BILIRUBIN,TOTAL 0.4 mg/dL (0.2-1.3); BLOOD UREA NITROGEN 6 mg/dL (7-20); CALCIUM 8.7 mg/dL (8.4-10.2); CARBON DIOXIDE 20 mmol/L (22-30); CHLORIDE 107 mmol/L (98-107); GLUCOSE 95 mg/dL (75-110); POTASSIUM 4.3 mmol/L (3.6-5.0); TOTAL PROTEIN 6.4 g/dL (6.3-8.2); URIC ACID 6.2 mg/dL (2.5-6.2)
[2019-08-30 17:04] LABS: ABSOLUTE LYMPHOCYTES# (MANUAL) 0.8 10^3/uL (0.5-4.7); ABSOLUTE MONOCYTES # (MANUAL) 1.3 10^3/uL (0.1-1.4); BASOPHILS % (MANUAL) 0 % (0-2); EOSINOPHILS % (MANUAL) 0 % (0-6); LYMPHOCYTES % (MANUAL) 4 % (13-45); MONOCYTES % (MANUAL) 8 % (3-13); SEGMENTED NEUTROPHILS % (MAN) 87 % (42-78); TOTAL CELLS COUNTED 100
[2019-08-30 17:05] LABS: ANISOCYTOSIS 1+; HYPOCHROMASIA SLIGHT; PLATELET LARGE PRESENT; POLYCHROMASIA SLIGHT
[2019-08-30] MEDS ORDERED: MEASLES,MUMPS&RUBELLA VACC/PF 0.5 ML VIAL SUBCUT PRN (17:05)
[2019-08-30] MEDS ORDERED: SIMETHICONE 80 MG TAB.CHEW PO PRN (17:05)
[2019-08-30] MEDS ORDERED: DIPH/PERTUSS(ACELL)/TETANUS VAC/PF 0.5 ML SYR (>=10YO) IM PRN (17:05)
[2019-08-30] MEDS ORDERED: ACETAMINOPHEN 1,000 MG/100 ML RTUPB IV PRN (17:05)
[2019-08-30] MEDS ORDERED: OXYTOCIN/NORMAL SALINE 20 UNIT/1,000 ML RTUINJ IV PRN (17:05)
[2019-08-30] MEDS ORDERED: PROMETHAZINE HCL INJ 25 MG/1 ML VIAL IV PRN (17:05)
[2019-08-30] MEDS ORDERED: MORPHINE SULFATE 10 MG/ML INJ IM PRN (17:05)
[2019-08-30] MEDS ORDERED: ACETAMINOPHEN 325 MG TABLET PO PRN (17:05)
[2019-08-30 17:06] LABS: PLATELET COMMENT ADEQUATE
--- NOTE | 2019-08-30 17:13 | Operative Report ---
Operative Report DATE OF SURGERY: 08/30/19 PREOPERATIVE DIAGNOSIS: IUP 38 weeks proteinuria failure to progress failure to descend POSTOPERATIVE DIAGNOSIS: Same OPERATION: Primary low transverse section delivery of viable infant Apgars and weight are pending SURGEON: ROSINA ROQUE ANESTHESIA: Epidural TISSUE REMOVED OR ALTERED: Placenta COMPLICATIONS: None PROCEDURE: The patient was taken to the operating room where spinal anesthesia was obtained and found to be adequate. She was then prepped and draped in the normal sterile fashion and placed in the dorsal supine position with a leftward tilt. A Pfannenstiel skin incision was then made and carried through to the underlying layers of the fascia with the scalpel. The fascia was incised in the midline and the incision extended laterally with the Aranda scissors. The superior aspect of the fascial incision was then grasped with [place] clamps elevated and the underlying rectus muscles dissected off bluntly. Attention was then turned to the inferior aspect of the fascial incision which in a similar fashion was grasped, tented up with [place] clamps, and the rectus muscles dissected off bluntly. The rectus muscles were then in the midline and the peritoneum at the amount identified and entered bluntly. The peritoneal incision was then extended superiorly and inferiorly with good visualization of the bladder. [The bladder blade was inserted and the vesicouterine peritoneum identified grasped with [place] pickups and entered sharply with the Metzenbaum scissors. His incision was then extended laterally with the Metzenbaum scissors and a bladder flap created digitally. The bladder blade was then reinserted and the lower uterine segment incised in a transverse fashion with the scalpel. The uterine incision was then extended bluntly. The bladder blade was removed and the 's head was delivered from cephalic presentation atraumatically. The nose and mouth were suctioned and the cord doubly clamped and cut. And the infant was handed off to waiting pediatricians. The placenta was then delivered manully and the uterus exteriorized and cleared of all clots and debris. The uterine incision was then repaired with 1-0 Vicryl in a running locked fashion. A second layer of the same suture was used to obtain hemostasis via imbrication of the initial layer. The uterus was returned to the patient's abdomen. The gutters were cleared of all clots and debris. All operative sites were noted to be hemostatic. The fascia was reapproximated with 0 Vicryl in a running fashion from each lateral edge to the midline. The patient tolerated the procedure well. Sponge lap needle and instrument counts are correct -2. 2 g of Ancef were given prior to skin incision. The patient was taken to the recovery area awake and in stable condition.
--- NOTE | 2019-08-30 17:14 | PDOC DELIVERY SUMMARY ---
Delivery Summary - Maternal Risk Factors: Induced HTN Ruptured Membranes: AROM Fluids: Clear - Delivery Labor: Not In Labor, Augmentation Presentation: Vertex Uterine Contraction Monitoring: External Support Person Present: Yes : Primary Nuchal Cord: No - Medications Type of Anesthesia:: Epidural
[2019-08-30 17:35] LABS: HEMATOCRIT 27.9 % (36.0-47.0); HEMOGLOBIN 8.8 g/dL (12.0-15.5); MEAN CORPUSCULAR HEMOGLOBIN 22.6 pg (27.0-33.4); MEAN CORPUSCULAR HGB CONC 31.7 g/dL (32.0-36.0); MEAN CORPUSCULAR VOLUME 71 fl (80-97); PLATELET COUNT 212 10^3/uL (150-450); RED BLOOD COUNT 3.91 10^6/uL (3.72-5.28); WHITE BLOOD COUNT 18.7 10^3/uL (4.0-10.5)
[2019-08-30] MEDS ORDERED: ACETAMINOPHEN 1,000 MG/100 ML RTUPB IV ONE (18:08)
[2019-08-30] MEDS: KETOROLAC TROMETHAMINE INJ/PF 30 MG/1 ML SDV IV SCH (21:07)
[2019-08-30] MEDS: OXYCODONE-ACETAMINOPHEN 5-325 MG TABLET PO PRN (23:33)
[2019-08-31] MEDS: KETOROLAC TROMETHAMINE INJ/PF 30 MG/1 ML SDV IV SCH ×2 (05:01→15:19)
[2019-08-31] MEDS ORDERED: RINGERS SOLUTION,LACTATED 1,000 ML IV ONE (06:15)
[2019-08-31 06:40] LABS: HEMATOCRIT 19.7 % (36.0-47.0); MEAN CORPUSCULAR HEMOGLOBIN 23.1 pg (27.0-33.4); MEAN CORPUSCULAR HGB CONC 32.8 g/dL (32.0-36.0); MEAN CORPUSCULAR VOLUME 71 fl (80-97); PLATELET COUNT 161 10^3/uL (150-450); RED CELL DISTRIBUTION WIDTH 18.2 % (11.5-14.0); WHITE BLOOD COUNT 10.1 10^3/uL (4.0-10.5)
[2019-08-31 06:45] LABS: HEMOGLOBIN 6.5 g/dL (12.0-15.5)
[2019-08-31] MEDS: OXYCODONE-ACETAMINOPHEN 5-325 MG TABLET PO PRN ×3 (08:53→21:36)
[2019-08-31] MEDS: FERROUS SULFATE 325 MG TABLET PO SCH ×4 (08:55→17:40)
[2019-08-31] MEDS: DOCUSATE SODIUM 100 MG CAPSULE PO SCH ×3 (10:16→17:40)
[2019-08-31] MEDS: PRENATAL VITAMIN W DHA CAPSULE PO SCH (10:17)
--- NOTE | 2019-08-31 13:06 | PDOC PROGRESS REPORT ---
Subjective-OB Progress Note for:: 08/31/19 Subjective: reports bleeding slowing, pain controlled with current meds, no complaints except fatigue Physical Exam (OB) Vital Signs: Temp Pulse Resp BP Pulse Ox 98.7 F 94 16 130/86 H 98 08/31/19 12:12 08/31/19 12:12 08/31/19 12:12 08/31/19 12:12 08/31/19 12:12 Intake & Output 08/30/19 08/31/19 09/01/19 06:59 06:59 06:59 Intake Total 1000 1000 300 Output Total 300 250 Balance 1000 700 50 - PIH/Pre-Eclampsia Headache: Absent Epigastric Pain: No Visual Changes: No - Dressing Removed: Yes Incision: Open, Well Approximated - Lochia Lochia Amount: Scant < 10 ml Lochia Color: Rubra/Red - Abdomen Description: Tender, Soft Hernia Present: No Fundal Description: Firm, Midline Fundal Height: u/u - u/2 - Abdominal Inspection: Normal Distension: No distension - Extremities Lower extremities: Oralia's sign - neg Calf: Normal, Nontender Objective-Diagnostic Laboratory: 08/31/19 06:22 08/30/19 16:14 08/30/19 08/30/19 08/30/19 16:14 16:14 16:14 WBC 16.4 H RBC 4.10 Hgb 9.2 L Hct 29.0 L MCV 71 L MCH 22.3 L MCHC 31.6 L RDW 18.0 H Plt Count 208 Seg Neutrophils % Not Reportable Sodium 136.3 L Potassium 4.3 Chloride 107 Carbon Dioxide 20 L Anion Gap 9 BUN 6 L Creatinine 0.46 L Est GFR ( Amer) > 60 Glucose 95 Uric Acid 6.2 Calcium 8.7 Total Bilirubin 0.4 AST 27 Alkaline Phosphatase 167 H Total Protein 6.4 Albumin 3.2 L Blood Type O POSITIVE Antibody Screen NEGATIVE 08/30/19 08/31/19 17:22 06:22 WBC 18.7 H 10.1 RBC 3.91 2.80 L Hgb 8.8 L 6.5 L D Hct 27.9 L 19.7 L MCV 71 L 71 L MCH 22.6 L 23.1 L MCHC 31.7 L 32.8 RDW 18.0 H 18.2 H Plt Count 212 161 Seg Neutrophils % Sodium Potassium Chloride Carbon Dioxide Anion Gap BUN Creatinine Est GFR ( Amer) Glucose Uric Acid Calcium Total Bilirubin AST Alkaline Phosphatase Total Protein Albumin Blood Type Antibody Screen Assessment and Plan(PN) - Assessment and Plan (1) Encounter for induction of labor Is this a current diagnosis for this admission?: Yes (2) Failure to progress in labor, delivered, current hospitalization Is this a current diagnosis for this admission?: Yes (3) hemorrhage, delivered, current hospitalization Is this a current diagnosis for this admission?: Yes (4) Preeclampsia Is this a current diagnosis for this admission?: Yes (5) S/P primary low transverse Is this a current diagnosis for this admission?: Yes - Time Spent with Patient Time with patient: Less than 15 minutes Medications reviewed and adjusted accordingly: Yes - Disposition Anticipated Discharge: Home Within: within 48 hours - recheck CBC and symptoms of anemia in AM
[2019-08-31] MEDS: IBUPROFEN 800 MG TABLET PO SCH (21:34)
[2019-09-01] MEDS: IBUPROFEN 800 MG TABLET PO SCH ×2 (03:09→11:09)
[2019-09-01 07:49] LABS: ABSOLUTE EOSINOPHILS # (AUTO) 0.1 10^3/uL (0.0-0.6); ABSOLUTE MONOCYTES (AUTO) 1.2 10^3/uL (0.1-1.4); ABSOLUTE NEUT (AUTO) 10.6 10^3/uL (1.7-8.2); BASOPHILS % (AUTO) 0.2 % (0-2); EOSINOPHILS % (AUTO) 0.6 % (0-6); HEMATOCRIT 26.2 % (36.0-47.0); HEMOGLOBIN 8.5 g/dL (12.0-15.5); LYMPHOCYTES % (AUTO) 7.7 % (13-45); MEAN CORPUSCULAR HEMOGLOBIN 23.1 pg (27.0-33.4); MEAN CORPUSCULAR HGB CONC 32.4 g/dL (32.0-36.0); MEAN CORPUSCULAR VOLUME 71 fl (80-97); MONOCYTES % (AUTO) 9.3 % (3-13); PLATELET COUNT 195 10^3/uL (150-450); RED BLOOD COUNT 3.66 10^6/uL (3.72-5.28); RED CELL DISTRIBUTION WIDTH 18.4 % (11.5-14.0); SEGMENTED NEUTROPHILS % (AUTO) 82.2 % (42-78); TOTAL CELLS COUNTED % (AUTO) 100 %; WHITE BLOOD COUNT 12.9 10^3/uL (4.0-10.5)
[2019-09-01] MEDS ORDERED: INFLUENZA QUAD (6MOS+) 2019-20 VAC 0.5 ML SYR IM ONE (08:00)
--- NOTE | 2019-09-01 09:18 | Delivery Summary ---
Del Sum A-C Datetime Report Generated by CPN: 09/01/2019 09:17 DELIVERY PERSONNEL DELIVERY PERSONNEL: [id number] Delivery Doctor:: Nilesh Rush MD Anesthesiologist:: Ramila Cheng MD ESCALATOR INSTALLER:: Efren Rossi CRNA Chair Springer:: Lina Miles RN Neonatal Nurse Practitioner:: MARTÍNEZ Wharton Truss Puller Helper/BREAKER TENDER: Rosamaria Patino CST Truss Puller Helper/BREAKER TENDER: Nichelle Cordon CST MATERNAL INFORMATION Delivery Anesthesia: Epidural Medications After Delivery: Pitocin Drip 20 Units/1000ml NSS; Methergine 0.2mg IM Estimated Blood Loss (ml): 1300 Maternal Complications: None LABOR SUMMARY EDC: 09/13/2019 00:00 No. Babies in Womb: 1 Attempted: No Labor Anesthesia: Epidural LABOR INFORMATION Reason for Induction: Pre-Eclampsia Cervical Ripening Agents: Cervidil Oxytocin: Induction Group B Beta Strep: NEGATIVE Antibiotics # of Doses: 1 Antibiotics Time of Last Dose: 1614 Name of Antibiotic Given: ancef 2 gm Steroids Given: None Reason Steroids Not Administered: Not Applicable MEMBRANES Membranes Rupture Method: Spontaneous Rupture of Membranes: 08/30/2019 15:30 Length of Rupture (hr): 1.10 Amniotic Fluid Color: Clear Amniotic Fluid Amount: Small Amniotic Fluid Odor: Normal STAGES OF LABOR Stage 3 hr: 0 Stage 3 min: 0 CSECTION DELIVERY Primary Indication: Nonreassuring Status Secondary Indication: Failure of Descent CSection Urgency: Non-Scheduled CSection Incidence: Primary Labor: Labor CSection Incision: Lower Uterine Transverse BABY A INFORMATION Delivery Date/Time: 08/30/2019 16:36 Method of Delivery: Born in Route : No : N/A Forceps: N/A Vacuum Extraction: N/A Shoulder Dystocia : No PRESENTATION/POSITION BABY A Presentation: Cephalic Cephalic Presentation: Vertex Breech Presentation: N/A PLACENTA INFORMATION BABY A Placenta Delivery Time : 08/30/2019 16:36 Placenta Method of Delivery: Manual Removal Placenta Status: Delivered SCORES BABY A Heart Rate 1 min: >100 bpm Resp Effort 1 min: Good Cry Reflex Irritability 1 min: Cough or Sneeze or Pulls Away Muscle Tone 1 min: Active Motion Color 1 min: Body [place], Extremities Blue Resuscitation Effort 1 min: Tactile Stimulation SCORE 1 MIN: 9 Heart Rate 5 min: >100 bpm Resp Effort 5 min: Good Cry Reflex Irritability 5 min: Cough or Sneeze or Pulls Away Muscle Tone 5 min: Active Motion Color 5 min: Body [place], Extremities Blue SCORE 5 MIN: 9 INFANT INFORMATION BABY A Gestational Age at Delivery: 38.0 Gestational Status: Early Term- 37- 38.6 Weeks Infant Outcome : Liveborn Infant Condition : Stable Sex: Female IDENTIFICATION BABY A Infant Verification Date/Time: 08/30/2019 16:36 ID Band Number: [id number] Mother's Name Verified: Yes RN Verifying : Kimberley Miles WEIGHT/LENGTH BABY A Infant Birthweight (gm): 2680 Infant Weight (lb): 5 Weight (oz): 15 Length (in): 18.50 Infant Length (cm): 46.99 CORD INFORMATION BABY A No. Cord Vessels: 3 Nuchal Cord : N/A Cord Blood Taken: Yes-For Eval (Mom's Blood Type - or O+) Suction: None ASSESSMENT BABY A Complications: Multiple Late Decels Skin to Skin: No Manager Bilingual/ALS Called : Yes Transferred To: Nursery BABY B INFORMATION : N/A SIGNATURES : I was personally available for consultation and serving as supervising physician for the MLP. : I was personally available for consultation and serving as supervising physician for the MLP. : I personally evaluated and examined the patient in conjunction with the MLP and agree with the assessment, treatment plan and disposition. : I personally evaluated and examined the patient in conjunction with the MLP and agree with the assessment, treatment plan and disposition.
[2019-09-01] MEDS: FERROUS SULFATE 325 MG TABLET PO SCH (11:10)
[2019-09-01] MEDS: PRENATAL VITAMIN W DHA CAPSULE PO SCH (11:10)
[2019-09-01] MEDS: DOCUSATE SODIUM 100 MG CAPSULE PO SCH (11:10)
[2019-09-01 11:35] VITALS: BP 145/90
--- NOTE | 2019-09-01 11:45 | PDOC DISCHARGE SUMMARY ---
Impression - Admit/DC Date/PCP Admission Date/Primary Care Provider: 08/31/19 09:32 MAGDI LAGUNA MD Discharge Date: 09/01/19 - Discharge Diagnosis (1) Encounter for induction of labor Is this a current diagnosis for this admission?: Yes (2) Failure to progress in labor, delivered, current hospitalization Is this a current diagnosis for this admission?: Yes (3) hemorrhage, delivered, current hospitalization Is this a current diagnosis for this admission?: Yes (4) Preeclampsia Is this a current diagnosis for this admission?: Yes (5) S/P primary low transverse Is this a current diagnosis for this admission?: Yes - Additional Information Discharge Diet: Regular Discharge Activity: Balance Activity w/Rest, No Lifting/Push/Pulling, Pelvic Rest, No tub bath Referrals: [facility] [Provider Group] (in one week for incision check) Home Medications: Ferrous Sulfate [Albafort] 325 mg PO BID 08/27/19 Vits96/Iron Fum/Folic [ Tablet] 1 tab PO DAILY 08/27/19 HPI Gestational Age: 38 Reason(s) for Admission: Induction of Labor Procedures: NST Intrapartum Procedure(s): : Low Cervical, Transverse Hospital Course Hospital Course: G1 now P1 originally admitted for evaluation for preeclampsia, found to have preeclampsia and started IOL; with FTP and NR FHT, pt underwent LTCS. had post hemorrhage and received 2 units PRBC, now stable and ready to be discharged Results Laboratory Results: WBC 10.1 10^3/uL (4.0-10.5) 08/31/19 06:22 RBC 2.80 10^6/uL (3.72-5.28) L 08/31/19 06:22 Hgb 6.5 g/dL (12.0-15.5) L D 08/31/19 06:22 Hct 19.7 % (36.0-47.0) L 08/31/19 06:22 MCV 71 fl (80-97) L 08/31/19 06:22 MCH 23.1 pg (27.0-33.4) L 08/31/19 06:22 MCHC 32.8 g/dL (32.0-36.0) 08/31/19 06:22 RDW 18.2 % (11.5-14.0) H 08/31/19 06:22 Plt Count 161 10^3/uL (150-450) 08/31/19 06:22 Lymph % (Auto) Not Reportable 08/30/19 16:14 Crisp % (Auto) Not Reportable 08/30/19 16:14 Eos % (Auto) Not Reportable 08/30/19 16:14 Baso % (Auto) Not Reportable 08/30/19 16:14 Absolute Neuts (auto) Not Reportable 08/30/19 16:14 Absolute Lymphs (auto) Not Reportable 08/30/19 16:14 Absolute Monos (auto) Not Reportable 08/30/19 16:14 Absolute Eos (auto) Not Reportable 08/30/19 16:14 Absolute Basos (auto) Not Reportable 08/30/19 16:14 Total Counted 100 08/30/19 16:14 Seg Neutrophils % Not Reportable 08/30/19 16:14 Seg Neuts % (Manual) 87 % (42-78) H 08/30/19 16:14 Lymphocytes % (Manual) 4 % (13-45) L 08/30/19 16:14 Atypical Lymphs % 1 % (0) 08/30/19 16:14 Monocytes % (Manual) 8 % (3-13) 08/30/19 16:14 Eosinophils % (Manual) 0 % (0-6) 08/30/19 16:14 Basophils % (Manual) 0 % (0-2) 08/30/19 16:14 Abs Neuts (Manual) 14.3 10^3/uL (1.7-8.2) H 08/30/19 16:14 Abs Lymphs (Manual) 0.8 10^3/uL (0.5-4.7) 08/30/19 16:14 Abs Monocytes (Manual) 1.3 10^3/uL (0.1-1.4) 08/30/19 16:14 Absolute Eos (Manual) 0.0 10^3/uL (0.0-0.6) 08/30/19 16:14 Abs Basophils (Manual) 0.0 10^3/uL (0.0-0.2) 08/30/19 16:14 Large Platelets PRESENT 08/30/19 16:14 Platelet Comment ADEQUATE 08/30/19 16:14 Polychromasia SLIGHT 08/30/19 16:14 Hypochromasia SLIGHT 08/30/19 16:14 Anisocytosis 1+ 08/30/19 16:14 Microcytosis 2+ 08/30/19 16:14 Sodium 136.3 mmol/L (137-145) L 08/30/19 16:14 Potassium 4.3 mmol/L (3.6-5.0) 08/30/19 16:14 Chloride 107 mmol/L (98-107) 08/30/19 16:14 Carbon Dioxide 20 mmol/L (22-30) L 08/30/19 16:14 Anion Gap 9 (5-19) 08/30/19 16:14 BUN 6 mg/dL (7-20) L 08/30/19 16:14 Creatinine 0.46 mg/dL (0.52-1.25) L 08/30/19 16:14 Est GFR ( Amer) > 60 (>60) 08/30/19 16:14 Est GFR (MDRD) Non-Af > 60 (>60) 08/30/19 16:14 Glucose 95 mg/dL (75-110) 08/30/19 16:14 Uric Acid 6.2 mg/dL (2.5-6.2) 08/30/19 16:14 Calcium 8.7 mg/dL (8.4-10.2) 08/30/19 16:14 Total Bilirubin 0.4 mg/dL (0.2-1.3) 08/30/19 16:14 Direct Bilirubin 0.2 mg/dL (0.0-0.4) 08/30/19 16:14 Neonat Total Bilirubin Not Reportable 08/30/19 16:14 Neonat Direct Bilirubin Not Reportable 08/30/19 16:14 Neonat Indirect Bili Not Reportable 08/30/19 16:14 AST 27 U/L (14-36) 08/30/19 16:14 ALT 16 U/L (<35) 08/30/19 16:14 Alkaline Phosphatase 167 U/L (38-126) H 08/30/19 16:14 Lactate Dehydrogenase 212 U/L (120-246) 08/30/19 16:14 Total Protein 6.4 g/dL (6.3-8.2) 08/30/19 16:14 Albumin 3.2 g/dL (3.5-5.0) L 08/30/19 16:14 Urine Color NUNU 08/27/19 11:45 Urine Appearance CLOUDY 08/27/19 11:45 Urine pH 6.0 (5.0-9.0) 08/27/19 11:45 Ur Specific [place] 1.031 08/27/19 11:45 Urine Protein >=500 mg/dL (NEGATIVE) H 08/27/19 11:45 Urine Glucose (UA) NEGATIVE mg/dL (NEGATIVE) 08/27/19 11:45 Urine Ketones NEGATIVE mg/dL (NEGATIVE) 08/27/19 11:45 Urine Blood NEGATIVE (NEGATIVE) 08/27/19 11:45 Urine Nitrite NEGATIVE (NEGATIVE) 08/27/19 11:45 Urine Bilirubin NEGATIVE (NEGATIVE) 08/27/19 11:45 Urine Urobilinogen 2.0 mg/dL (<2.0) H 08/27/19 11:45 Ur Leukocyte Esterase NEGATIVE (NEGATIVE) 08/27/19 11:45 Ur 24 Hour Volume 1040 mL 08/28/19 15:00 Urine Creatinine 109.7 mg/dL (16-327) 08/28/19 15:00 Ur Creatinine mg/24hr 1.1 mg/day (0.8-2.0) 08/28/19 15:00 Ur Total Protein 24 Hr 5431 mg/day (42-225) H 08/28/19 15:00 Protein/Creatinin Ratio 1.3 mg/mg (0.0-0.2) H 08/27/19 11:45 Urine Total Protein 522.2 mg/dL (<12) H 08/28/19 15:00 Urine Ascorbic Acid NEGATIVE (NEGATIVE) 08/27/19 11:45 Membranes Rupture POSITIVE (NEGATIVE) H 08/30/19 14:44 Urine Opiates Screen NEGATIVE 08/27/19 11:45 Urine Methadone Screen NEGATIVE 08/27/19 11:45 Ur Barbiturates Screen NEGATIVE 08/27/19 11:45 Ur Phencyclidine Scrn NEGATIVE 08/27/19 11:45 Ur Amphetamines Screen NEGATIVE 08/27/19 11:45 U Benzodiazepines Scrn NEGATIVE 08/27/19 11:45 Urine Cocaine Screen NEGATIVE 08/27/19 11:45 U Marijuana (THC) Screen NEGATIVE 08/27/19 11:45 RPR NONREACTIVE (NONREACTIVE) 08/30/19 16:14 Blood Type O POSITIVE 08/30/19 16:14 Blood Type Confirm O POSITIVE 08/31/19 07:08 Antibody Screen NEGATIVE 08/30/19 16:14 Crossmatch See Detail 08/30/19 16:14 Plan Plan of Treatment: return to [facility] in 1w for incision check and BP check Time Spent: Less than 30 Minutes
[2019-09-01] MEDS ORDERED: IBUPROFEN 800 MG TABLET PO SCH (18:00)
== END 2019-09-01 13:15 | disposition home or self-care (01) | DRG 788 ==
LOC: LC 11:45 → LR 15:16 → 2N 16:35 → LR 08-29 12:23 → 2S 08-30 18:50 → OBSVTOIN 08-31 09:32
PROVIDERS: ADMIT Obstetrics & Gynecology Gynecology; ATTEND Obstetrics & Gynecology Gynecology
PROC: 10D00Z1 Extraction of Products of Conception, Low, Open Approach (ICD-10-PCS; principal; 2019-08-30)
PROC: 30233N1 Transfusion of Nonautologous Red Blood Cells into Peripheral Vein, Percutaneous Approach (ICD-10-PCS; 2019-08-31)
PROC: 3E0234Z Introduction of Serum, Toxoid and Vaccine into Muscle, Percutaneous Approach (ICD-10-PCS; 2019-09-01)
DX: O14.94 Unspecified pre-eclampsia, complicating childbirth (principal); O32.4XX0 Maternal care for high head at term, not applicable or unspecified; O13.4 Gestational [pregnancy-induced] hypertension without significant proteinuria, complicating childbirth; O72.2 Delayed and secondary postpartum hemorrhage; Z3A.38 38 weeks gestation of pregnancy; Z37.0 Single live birth; Z23 Encounter for immunization
CPT/HCPCS: 1961; 36415; 36430; 59025; 80053; 80307; 81005; 82570; 83615; 84112; 84156; 84550; 85025; 85027; 86592; 86850; 86900; 86901; 86920; 87070; 90686; 94760; C1758; G0378; J0131; J0690; J1885; J2210; J2250; J2270; J2300; J2370; J2405; J2590; J3010; J3105; J3490; J7120; P9016

== ENCOUNTER 2019-09-07 23:19 | Emergency (ER) | payer OTHER ==
[2019-09-08 00:10] VITALS: BP 139/93
== END 2019-09-08 04:03 | disposition left against medical advice (07) ==
LOC: ER 23:19
DX: Z53.21 Procedure and treatment not carried out due to patient leaving prior to being seen by health care provider (principal)